=== PATIENT | male | born 1945 | race African-American/Black ===

== ENCOUNTER 2017-06-19 14:43 | Emergency (ER) | payer MEDICARE, OTHER ==
[~2017-06-19] VITALS: Ht 177.8 cm; Wt 72.6 kg
[~2017-06-19 14:43] MED LIST: ASPI81CH43 PO; ATOR20TA50 PO; CALC600T80 PO; CAR3125T PO; CLOP75TA28 PO; DONE10TA37 PO; ENA2.5T PO; FUR20T PO; HYDR-4663 PO; ISOS20TA56 PO; MEMA28CA PO; PHEN100C70 PO; RISP1TAB63 PO
[2017-06-19 16:38] VITALS: BP 128/70
== END 2017-06-19 17:05 | disposition home or self-care (01) ==
LOC: EDUNIT# 14:43 → ER 14:48
DX: G89.29 Other chronic pain (principal); M54.9 Dorsalgia, unspecified; R10.9 Unspecified abdominal pain; I25.10 Atherosclerotic heart disease of native coronary artery without angina pectoris; I11.0 Hypertensive heart disease with heart failure; I50.9 Heart failure, unspecified; E78.5 Hyperlipidemia, unspecified; F03.90 Unspecified dementia, unspecified severity, without behavioral disturbance, psychotic disturbance, mood disturbance, and anxiety; I25.2 Old myocardial infarction; Z95.1 Presence of aortocoronary bypass graft
CPT/HCPCS: 93005

== ENCOUNTER 2018-06-27 16:07 | Inpatient (IN) | payer MEDICARE, OTHER ==
[~2018-06-27] VITALS: Ht 177.8 cm; Wt 77.1 kg
[~2018-06-27 16:07] MED LIST changes: +CYAN500T2 PO; -DONE10TA37 PO; +DONE10TA40 PO; -HYDR-4663 PO; +HYDR-4683 PO; +LEVO-28 PO; -MEMA28CA PO; +TAM04C PO
[2018-06-27] MEDS ORDERED: SODIUM CHLORIDE 0.9% 1,000 ML IV ONE (17:01)
[2018-06-27] MEDS ORDERED: MORPHINE SULF INJ 2 MG/ML SYRINGE 1ML IV ONE (17:15)
[2018-06-27] MEDS ORDERED: PROMETHAZINE HCL 25 MG/ML 1ML IV ONE (17:15)
[2018-06-27 17:46] LABS: Basophils # (auto) 0 uL; Basophils % (auto) 0.6 % (0.0-2.0); Eosinophils # (auto) 0.4 uL; Eosinophils % (auto) 5.9 % (0.0-7.0); Hematocrit 44.3 % (41.0-53.0); Hemoglobin 14.8 g/dL (13.5-17.5); Lymphocytes # (auto) 1.4 uL; Lymphocytes % (auto) 21.4 % (10.0-50.0); Mean Corpuscular Hemoglobin 31.6 pg (28.0-32.0); Mean Corpuscular Hgb Conc. 33.4 g/dL (32.0-36.0); Mean Corpuscular Volume 94.7 fL (80.0-100.0); Monocytes # (auto) 0.8 uL; Monocytes % (auto) 11.5 % (0.0-12.0); Neutrophils # (auto) 3.9 uL; Neutrophils % (auto) 60.6 % (37.0-80.0); Nucleated Red Blood Cells % 2.3 %; Platelet Count (auto) 170 10^3/uL (140-450); Red Blood Cells 4.68 10^6/uL (4.5-5.90); Red Cell Distribution Width 15.4 % (11.8-14.3); White Blood Cell 6.5 10^3/uL (4.4-10.8)
[2018-06-27 17:57] LABS: INR 1.06 (0.9-1.15); Partial Thromboplastin Time 25.9 sec (23.78-33.04); Prothrombin Time 11.3 sec (9.27-12.13)
[2018-06-27 18:02] LABS: Alanine Aminotransferase 20 U/L (16-61); Albumin 3.8 g/dL (3.4-5.0); Anion Gap 8 (5-15); Aspartate Aminotransferase 21 U/L (15-37); BUN/Creatinine Ratio 13.4; Blood Urea Nitrogen 15 mg/dL (7-18); Calcium 8.5 mg/dL (8.5-10.1); Carbon Dioxide 27 mmol/L (21-32); Chloride 108 mmol/L (98-107); GFR African American 83 mL/min; GFR Non-African American 68 mL/min; Glucose 75 mg/dL (74-106); Sodium 143 mmol/L (136-145)
[2018-06-27 18:07] LABS: Alkaline Phosphatase 112 U/L (45-117); Bilirubin, Total 0.4 mg/dL (0.2-1.0); Total Protein 7.7 g/dL (6.4-8.2)
[2018-06-27] MEDS ORDERED: ACETAMINOPHEN 325 MG TAB PO PRN (21:30)
[2018-06-27] MEDS ORDERED: TEMAZEPAM 15 MG CAP PO PRN (21:30)
[2018-06-27] MEDS ORDERED: SUMAtriptan SUCCINATE 25 MG TAB PO ONE (21:30)
[2018-06-27] MEDS ORDERED: SUMAtriptan SUCCINATE 25 MG TAB PO PRN (21:30)
[2018-06-27] MEDS ORDERED: ONDANSETRON HCL 4 MG/2 ML VIAL IV PRN (21:30)
[2018-06-27] MEDS ORDERED: HYDROcodone-ACET 5/325MG TAB PO PRN (21:30)
[2018-06-27] MEDS ORDERED: ATORVASTATIN 20 MG TAB PO SCH (22:00)
[2018-06-27] MEDS ORDERED: PHENYTOIN SODIUM 100 MG CAP PO SCH (22:00)
[2018-06-27] MEDS ORDERED: DONEPEZIL HYDROCHLORIDE 5 MG TAB PO SCH (22:00)
[2018-06-27] MEDS: FAMOTIDINE 20 MG TAB PO SCH (22:29)
[2018-06-27] MEDS: risperiDONE 1 MG TAB PO SCH (22:29)
[2018-06-27] MEDS: ENALAPRIL MALEATE 2.5 MG TAB PO SCH (22:29)
[2018-06-27] MEDS: CARVEDILOL 3.125 MG TAB PO SCH (22:29)
[2018-06-27] MEDS: ISOSORBIDE MONONITRATE 20 MG TAB PO SCH (22:29)
[2018-06-27 23:11] VITALS: BP_SYST 174; BP_SYST 188; BP_DIAS 86; BP_DIAS 96
[2018-06-28 05:22] VITALS: BP 137/76
[2018-06-28 07:06] LABS: Basophils # (auto) 0 uL; Basophils % (auto) 0.8 % (0.0-2.0); Eosinophils # (auto) 0.4 uL; Hematocrit 40.6 % (41.0-53.0); Hemoglobin 13.7 g/dL (13.5-17.5); Lymphocytes # (auto) 1.4 uL; Lymphocytes % (auto) 23.1 % (10.0-50.0); Mean Corpuscular Hemoglobin 31.9 pg (28.0-32.0); Mean Corpuscular Hgb Conc. 33.8 g/dL (32.0-36.0); Mean Corpuscular Volume 94.4 fL (80.0-100.0); Monocytes # (auto) 0.7 uL; Neutrophils # (auto) 3.6 uL; Neutrophils % (auto) 59.1 % (37.0-80.0); Nucleated Red Blood Cells % 0.2 %; Platelet Count (auto) 156 10^3/uL (140-450); Red Cell Distribution Width 15.2 % (11.8-14.3); White Blood Cell 6.1 10^3/uL (4.4-10.8)
[2018-06-28 07:19] LABS: Albumin 3.2 g/dL (3.4-5.0); BUN/Creatinine Ratio 13.1; Calcium 8.1 mg/dL (8.5-10.1); Potassium 3.7 mmol/L (3.5-5.1)
[2018-06-28 07:22] LABS: Bilirubin, Total 0.6 mg/dL (0.2-1.0); Total Protein 6.4 g/dL (6.4-8.2)
[2018-06-28 08:39] VITALS: BP 176/85
[2018-06-28] MEDS: ISOSORBIDE MONONITRATE 20 MG TAB PO SCH (09:52)
[2018-06-28] MEDS: risperiDONE 1 MG TAB PO SCH (09:52)
[2018-06-28] MEDS: ENALAPRIL MALEATE 2.5 MG TAB PO SCH (09:53)
[2018-06-28] MEDS: FAMOTIDINE 20 MG TAB PO SCH (09:53)
[2018-06-28] MEDS: CARVEDILOL 3.125 MG TAB PO SCH (09:54)
[2018-06-28] MEDS ORDERED: ASPirin 81 mg TAB PO SCH (10:00)
[2018-06-28] MEDS ORDERED: FUROSEMIDE 20 MG TAB PO SCH (10:00)
[2018-06-28] MEDS ORDERED: CLOPIDOGREL BISULFATE 75 MG TAB PO SCH (10:00)
[2018-06-28] MEDS ORDERED: ENOXAPARIN SOD 40 MG/0.4 ML SYRINGE SC SCH (10:00)
[2018-06-28 13:00] VITALS: BP 121/79
[2018-06-28 16:35] VITALS: BP 121/79
[2018-06-28 16:35] LABS: Urine Bacteria FEW /hpf (None Seen); Urine Blood Negative /uL (Negative); Urine Specific Gravity 1.006 (1.001-1.035); Urine WBC 2 /hpf (0 - 3)
[2018-06-28 17:09] VITALS: BP 145/92
[2018-06-28] MEDS ORDERED: TAMSULOSIN HYDROCHLORIDE 0.4 MG CAP PO SCH (18:00)
== END 2018-06-28 20:15 | disposition home or self-care (01) | DRG 194 ==
LOC: EDBD 16:07 → ER 16:14 → OVERFLOW 16:15 → WEST WING 22:49
PROVIDERS: ADMIT Nurse Practitioner; ATTEND Internal Medicine
DX: I11.0 Hypertensive heart disease with heart failure (principal); N17.0 Acute kidney failure with tubular necrosis; R51 Headache; I50.42 Chronic combined systolic (congestive) and diastolic (congestive) heart failure; G20 Parkinson's disease; F20.9 Schizophrenia, unspecified; I69.351 Hemiplegia and hemiparesis following cerebral infarction affecting right dominant side; F02.80 Dementia in other diseases classified elsewhere, unspecified severity, without behavioral disturbance, psychotic disturbance, mood disturbance, and anxiety; N39.0 Urinary tract infection, site not specified; G40.909 Epilepsy, unspecified, not intractable, without status epilepticus; E78.5 Hyperlipidemia, unspecified; I25.10 Atherosclerotic heart disease of native coronary artery without angina pectoris; M19.90 Unspecified osteoarthritis, unspecified site; Z82.49 Family history of ischemic heart disease and other diseases of the circulatory system; Z87.442 Personal history of urinary calculi; Z87.891 Personal history of nicotine dependence; Z95.0 Presence of cardiac pacemaker; I25.2 Old myocardial infarction
CPT/HCPCS: 36415; 70450; 71045; 80053; 81001; 83735; 84484; 85025; 85610; 85652; 85730; 94761; 96361; 96374; 96375

== ENCOUNTER 2018-12-27 20:20 | Inpatient (IN) | payer MEDICARE, OTHER | END 2018-12-29 19:50 | disposition home or self-care (01) | LOC: ER 20:20 → TELE 12-28 02:32 → OVERFLOW 12-28 03:06 → CENTRAL 12-28 13:04 | DX: G93.41 Metabolic encephalopathy (principal); I50.42 Chronic combined systolic (congestive) and diastolic (congestive) heart failure; G20 Parkinson's disease; I69.351 Hemiplegia and hemiparesis following cerebral infarction affecting right dominant side; N39.0 Urinary tract infection, site not specified; G40.909 Epilepsy, unspecified, not intractable, without status epilepticus; Z95.0 Presence of cardiac pacemaker; F03.90 Unspecified dementia, unspecified severity, without behavioral disturbance, psychotic disturbance, mood disturbance, and anxiety ==

== ENCOUNTER 2019-01-17 11:35 | Inpatient (IN) | payer MEDICARE, OTHER ==
[~2019-01-17] VITALS: Ht 172.7 cm; Wt 73.5 kg
[~2019-01-17 11:35] MED LIST changes: -ASPI81CH43 PO; -ATOR20TA50 PO; -CALC600T80 PO; -CYAN500T2 PO; -DONE10TA40 PO; -ENA2.5T PO; -FUR20T PO; -HYDR-4683 PO; -ISOS20TA56 PO; -LEVO-28 PO; -PHEN100C70 PO
[2019-01-17] MEDS ORDERED: SODIUM CHLORIDE 0.9% 1,000 ML IVB ONE (12:00)
[2019-01-17 13:26] LABS: Urine WBC None Seen /hpf (0 - 3)
[2019-01-17 13:37] LABS: Basophils # (auto) 0 uL; Basophils % (auto) 0.2 % (0.0-2.0); Eosinophils # (auto) 0.3 uL; Eosinophils % (auto) 5.8 % (0.0-7.0); Hematocrit 45.3 % (41.0-53.0); Hemoglobin 15.2 g/dL (13.5-17.5); Lymphocytes # (auto) 0.6 uL; Lymphocytes % (auto) 11.6 % (10.0-50.0); Mean Corpuscular Hemoglobin 31.4 pg (28.0-32.0); Mean Corpuscular Hgb Conc. 33.6 g/dL (32.0-36.0); Mean Corpuscular Volume 93.6 fL (80.0-100.0); Monocytes # (auto) 0.6 uL; Monocytes % (auto) 11.9 % (0.0-12.0); Neutrophils # (auto) 3.4 uL; Neutrophils % (auto) 70.5 % (37.0-80.0); Nucleated Red Blood Cells % 0.1 %; Platelet Count (auto) 90 10^3/uL (140-450); Red Blood Cells 4.84 10^6/uL (4.5-5.90); Red Cell Distribution Width 15.6 % (11.8-14.3); White Blood Cell 4.8 10^3/uL (4.4-10.8)
[2019-01-17 13:49] LABS: Urine Bacteria NONE SEEN /hpf (None Seen); Urine Blood Negative /uL (Negative); Urine Specific Gravity 1.019 (1.001-1.035)
[2019-01-17 13:51] LABS: INR 1.11 (0.9-1.15); Partial Thromboplastin Time 31.6 sec (23.78-33.04); Prothrombin Time 11.8 sec (9.27-12.13)
[2019-01-17 14:08] LABS: Albumin 3.2 g/dL (3.4-5.0); BUN/Creatinine Ratio 40.6; Calcium 8.9 mg/dL (8.5-10.1); Magnesium 2.6 mg/dL (1.6-2.6); Potassium 3.9 mmol/L (3.5-5.1)
[2019-01-17 14:13] LABS: Bilirubin, Total 0.2 mg/dL (0.2-1.0); Total Protein 7.2 g/dL (6.4-8.2)
[2019-01-17] MEDS ORDERED: DEXTROSE 50% SYRINGE 50 ML IV ONE (14:57)
[2019-01-17] MEDS ORDERED: DEXTROSE (50%) 50ML SYRG IV ONE (15:00)
[2019-01-17] MEDS ORDERED: TEMAZEPAM 15 MG CAP PO PRN (15:15)
[2019-01-17] MEDS ORDERED: NITROGLYCERIN 0.4 MG SL TAB SL PRN (15:15)
[2019-01-17] MEDS ORDERED: MORPHINE SULFATE 4 MG/ML SYR/VIAL IV PRN (15:15)
[2019-01-17] MEDS ORDERED: PROMETHAZINE HCL 25 MG/ML 1ML IV PRN (15:15)
[2019-01-17] MEDS ORDERED: LORazepam 0.5 MG TAB PO PRN (15:15)
[2019-01-17] MEDS ORDERED: LACTULOSE 20Gm/30ML SOLN PO PRN (15:15)
[2019-01-17] MEDS ORDERED: MORPHINE SULF INJ 2 MG/ML SYRINGE 1ML IV PRN (15:15)
[2019-01-17] MEDS ORDERED: HYDROcodone-ACET 5/325MG TAB PO PRN (15:15)
[2019-01-17] MEDS: SODIUM CHLORIDE 0.9% 1,000 ML IV SCH (15:37)
[2019-01-17 16:08] LABS: Folate (Folic Acid) 9.31 ng/mL (5.38-24)
[2019-01-17] MEDS: TAMSULOSIN HYDROCHLORIDE 0.4 MG CAP PO SCH (18:00)
[2019-01-17 18:14] VITALS: BP 93/59
--- NOTE | 2019-01-17 18:14 | NUR ---
PT ADMITTED TO FLOOR VIA BED AND STAFF. PT APHASIC AND UNRESPONSIVE, ARMS AND LEGS CONTRACTED. 10 MLS CLEAR YELLOW URINE NOTED IN DUNCAN. SMALL PRESSURE ULCER ON RIGHT BUTTOX/HIP AREA COVERED WITH OPTIFOAM. SIDE RAILS UP X2, BED IN LOWEST LOCKED POSITION WITH BED ALARM ON. LIGHT ON, CALLED CHARGE FOR BEAR HUGGER. LO REPORTS SHE WILL BE IN SOON TO SEE THE PATIENT. VITALS: BP 93/59, HR 60, 02 100, RR 14, T 93.4 RECTALLY. BS 84.
--- NOTE | 2019-01-17 18:45 | NUR ---
HELD 1800 FLOW MAX AND DINNER TRAY HELD, NOT SURE IF PT CAN SWALLOW AND PT UNABLE TO SPEAK. DIET AND WOUND CONSULT PUT IN. WILL CONTINUE TO MONITOR.
--- NOTE | 2019-01-17 19:12 | NUR ---
RETRIEVED BEAR VANDANAGGER FROM ICU. ICU CHARGE REPORTS TO MONITOR PT TEMP Q 2 HOURS AND START PT ON MEDIUM SETTING. BEAR HUGGER IN PLACE ON MEDIUM DIRECTLY ON TOP OF PATIENT WITH BLANKETS ON TOP. SPOKE WITH KYLER, FIELD GAUGER, PATIENT LIVES WITH HER, KYLER UPDATED ON PATIENT STATUS AND ROOM NUMBER, PASSWORD WAS ALREADY IN COMPUTER FROM PT LAST ADMISSION FOR UTI 0N Dec.
--- NOTE | 2019-01-17 19:30 | NUR ---
Opening Shift Note Assumed care of patient, lethargic at this time, respirations even and unlabored at 3 Lpm/NC. Noted Yulia Hugger on the patient at moderate temperature. No S/S of distress/SOB or pain. Turned to his side and every 2 hours, bed in lowest position, bed alarm on, will closely monitor for changes Q1hr and PRN.
[2019-01-17] MEDS ORDERED: DEXTROSE (50%) 50ML SYRG IV PRN (20:30)
[2019-01-17 22:00] VITALS: BP 79/54
[2019-01-17] MEDS: risperiDONE 1 MG TAB PO SCH (22:00)
[2019-01-17] MEDS ORDERED: ATORVASTATIN 20 MG TAB PO SCH (22:00)
[2019-01-17] MEDS: CARVEDILOL 3.125 MG TAB PO SCH (22:00)
[2019-01-17 23:00] VITALS: BP 99/54
--- NOTE | 2019-01-17 23:55 | NUR ---
Blood sugar of 66 and rechecked of 63. Patient lethargic at this time, unable to assess swallowing. D50 IV given per protocol, will update hospitalist
[2019-01-18] VITALS (8 sets, daily range): BP systolic 88–114; BP diastolic 42–56
[2019-01-18] MEDS: ACCU-CHEK COMFORT CURVE STRIP VI SCH ×6 (00:01→22:17)
--- NOTE | 2019-01-18 01:11 | NUR ---
Spoke to Hospitalist Jose Roberto and updated on patient's status. Order received at this time and read back, will carry out order
[2019-01-18] MEDS ORDERED: D5W/SOD CHLO 0.9% 1,000 ML IV SCH (01:15)
[2019-01-18] MEDS: SODIUM CHLORIDE 0.9% 1,000 ML IV SCH (03:38)
--- NOTE | 2019-01-18 04:00 | NUR ---
Dressing to right hip ulcer changed, cleansed with NS and patted dry. Turned to his right side and every 2 hours, patient tolerated well, will continue to monitor
--- NOTE | 2019-01-18 04:00 | NUR ---
Turned Off Yulia Hugger at this time, patient's temperature is 99.3, removed extra blanket, will recheck temperature later
--- NOTE | 2019-01-18 05:00 | NUR ---
Had a smear of bowel movement, sponge bath done, pads changed, turned to his side, patient tolerated well Addendum: 01/19/19 at 0640 by Carmel Crandall RN RN Correction of date: 01/19/19 at 0136
[2019-01-18 06:35] LABS: Basophils # (auto) 0 uL; Basophils % (auto) 0.2 % (0.0-2.0); Eosinophils # (auto) 0.2 uL; Eosinophils % (auto) 2.5 % (0.0-7.0); Hemoglobin 13.5 g/dL (13.5-17.5); Lymphocytes # (auto) 0.4 uL; Lymphocytes % (auto) 5.5 % (10.0-50.0); Mean Corpuscular Hemoglobin 31.8 pg (28.0-32.0); Mean Corpuscular Hgb Conc. 33.9 g/dL (32.0-36.0); Mean Corpuscular Volume 93.7 fL (80.0-100.0); Monocytes # (auto) 1.2 uL; Monocytes % (auto) 15.6 % (0.0-12.0); Neutrophils % (auto) 76.2 % (37.0-80.0); Nucleated Red Blood Cells % 0.1 %; Platelet Count (auto) 92 10^3/uL (140-450); Red Blood Cells 4.26 10^6/uL (4.5-5.90); Red Cell Distribution Width 15.9 % (11.8-14.3); White Blood Cell 7.8 10^3/uL (4.4-10.8)
[2019-01-18 06:52] LABS: Calcium 8.4 mg/dL (8.5-10.1); Potassium 4.6 mmol/L (3.5-5.1)
[2019-01-18 07:06] LABS: BUN/Creatinine Ratio 22.8; Bilirubin, Total 0.2 mg/dL (0.2-1.0)
[2019-01-18 07:08] LABS: Total Protein 6.3 g/dL (6.4-8.2)
--- NOTE | 2019-01-18 07:30 | NUR ---
Opening Shift Note Assumed care of patient, opens eyes with saying name and shaking. Does not respond or move limbs. No S/S of distress/SOB or pain. Will continue to monitor for changes Q1hr and PRN.
[2019-01-18] MEDS: CLOPIDOGREL BISULFATE 75 MG TAB PO SCH (10:00)
[2019-01-18] MEDS: CARVEDILOL 3.125 MG TAB PO SCH ×2 (10:00→22:00)
[2019-01-18] MEDS: risperiDONE 1 MG TAB PO SCH ×2 (10:00→22:16)
[2019-01-18] MEDS ORDERED: PANTOPRAZOLE 40 MG TAB PO SCH (10:00)
[2019-01-18] MEDS ORDERED: ENOXAPARIN SOD 40 MG/0.4 ML SYRINGE SC SCH (10:00)
[2019-01-18] MEDS ORDERED: D5W 5% 1,000 ML IV ONE (11:00)
[2019-01-18] MEDS ORDERED: DEXTROSE (50%) 50ML SYRG IV PRN (11:00)
[2019-01-18] MEDS: InsuLIN REG 1unit/0.01ml Soln (100units/ml) SC SCH ×3 (11:30→22:00)
[2019-01-18] MEDS ORDERED: FREE WATER PO SCH (12:00)
--- NOTE | 2019-01-18 12:46 | NUR ---
Nasogastric tube insertion Patient opens eyes to tactile stimuli. No verbal response or limb movement. Cannot swallow. NGT inserted per MD order. Placement verified by aspiration of stomach contents, auscultation and chest xray.
[2019-01-18] MEDS ORDERED: PANTOPRAZOLE 40 MG/10 ML VIAL IV ONE (13:00)
--- NOTE | 2019-01-18 13:58 | NUR ---
WOUND CARE NOTE: Wound care in to see patient per wound care request regarding "pressure area on pt. right hip/buttock" that are noted present on admission. Bedside nurse took photograph of patient's wound upon admission for reference. Patient is 73 years old male with admitting diagnosis of ALOC, CVA, Non-STEMI. Patient is resting in bed in Rm. 222A. He's awake and aphasic. Patient appears to be in no pain using Crooks Jovel Faces Pain Scale. He needs assistance in turning and repositioning. His Remberto score is 13. Skin assessment done with the assistance of patient's nurse, KESHAWN Vieyra. Noted 3x3.5 cm open partial thickness pressure injury to patient's R hip consistent with Stage 2 pressure injury. Wound is red with dark red mehnaz wound, no drainage/odor noted. Cleansed R hip wound with wound cleanser, patted dry with sterile gauze, applied Thera honey gel and covered with Opti foam gentle dressing. Repositioned patient for comfort, redistributed pressure points with pillows. Patient tolerated well. Bed inlow position with all safety precautions in placed. RECOMMENDATION: Daily/PRN dressing change to Rt. hip pressure injury , BID/PRN cleaning and application of Barrier cream to sacral/buttocks per MD order, frequent turning and repositioning schedule as condition permits, redistribute pressure points with pillows, elevate heels on pillows, continue monitoring by wound care while patient is hospitalized. Addendum: 01/18/19 at 1753 by Kristen Tijerina RN Amended: Links added.
[2019-01-18] MEDS ORDERED: CLOPIDOGREL BISULFATE 75 MG TAB PO ONE (16:00)
--- NOTE | 2019-01-18 17:32 | NUR ---
DR. PABON MADE AWARE OF PATIENT'S DECREASED BLOOD PRESSURE. NORMAL SALINE BOLUS ORDER OBTAINED. I INFORMED HIM THAT THE PATIENT CURRENTLY HAS A HIGH SODIUM LEVEL. ORDER FOR BOLUS STILL STANDS.
[2019-01-18] MEDS ORDERED: SODIUM CHLORIDE 0.9% 500 ML IV ONE (17:45)
[2019-01-18] MEDS: TAMSULOSIN HYDROCHLORIDE 0.4 MG CAP PO SCH (18:00)
[2019-01-18] MEDS: FREE WATER NG SCH (18:16)
[2019-01-18] MEDS ORDERED: HALOPERIDOL LACTATE 5 MG/ML INJ VIAL IM PRN (18:45)
[2019-01-18] MEDS ORDERED: LORazepam 2MG/ML-1ML VIAL IV PRN (18:45)
--- NOTE | 2019-01-18 19:35 | NUR ---
Opening Shift Note Assumed care of patient, opens eyes with saying name and shaking. Respirations even and unlabored, no signs of distress. Noted NGT on right nares, chowdhury patent and draining to light elsa urine output. Bed in lowest position, bed alarm on, turned to his side and every 2 hours, will continue to monitor for changes Q1hr and PRN.
--- NOTE | 2019-01-18 20:10 | NUR ---
Patient was brought down for Head CT
[2019-01-18 20:31] LABS: CRP High Sensitivity 4.1 mg/dL (< 0.3)
[2019-01-18] MEDS: ATORVASTATIN 20 MG TAB PO SCH (22:16)
[2019-01-18] MEDS: PHENYTOIN SODIUM 50 MG/ML 2ML VIAL IV SCH (22:17)
[2019-01-19] MEDS: FREE WATER NG SCH ×5 (00:01→23:23)
[2019-01-19 04:39] VITALS: BP 102/50
--- NOTE | 2019-01-19 05:10 | NUR ---
Dressing to right hip moderately soaked, changed as ordered, patient tolerated well
--- NOTE | 2019-01-19 06:05 | NUR ---
Patient had a moist cough, suctioned oral secretions, will continue to monitor
[2019-01-19] MEDS: PHENYTOIN SODIUM 50 MG/ML 2ML VIAL IV SCH ×3 (06:17→22:51)
[2019-01-19] MEDS: ACCU-CHEK COMFORT CURVE STRIP VI SCH ×4 (06:18→22:50)
[2019-01-19] MEDS: InsuLIN REG 1unit/0.01ml Soln (100units/ml) SC SCH ×4 (06:18→22:00)
[2019-01-19 06:31] LABS: Potassium 4.7 mmol/L (3.5-5.1)
[2019-01-19 06:40] LABS: BUN/Creatinine Ratio 27.5; Calcium 8.6 mg/dL (8.5-10.1)
--- NOTE | 2019-01-19 07:20 | NUR ---
Opening Shift Note Assumed care of patient, patient lethargic. Patient opens eyes to name and shaking. No S/S of distress/SOB or pain. NG tub in place. Safety precautions in place.
[2019-01-19 08:00] VITALS: BP 120/55
[2019-01-19] MEDS: CARVEDILOL 3.125 MG TAB PO SCH ×2 (08:42→22:49)
[2019-01-19 09:01] VITALS: BP 120/53
[2019-01-19] MEDS: CLOPIDOGREL BISULFATE 75 MG TAB PO SCH (10:29)
[2019-01-19] MEDS: ENOXAPARIN SOD 30 MG/0.3 ML SYRINGE SC SCH (10:29)
[2019-01-19] MEDS: risperiDONE 1 MG TAB PO SCH ×2 (10:29→22:49)
[2019-01-19] MEDS: PANTOPRAZOLE 40 MG/10 ML VIAL IV SCH (10:29)
--- NOTE | 2019-01-19 12:25 | NUR ---
EEG COMPLETED AT BEDSIDE. KESHAWN LOVELL.
[2019-01-19 12:30] VITALS: BP 114/58
--- NOTE | 2019-01-19 12:52 | NUR ---
Temp 96 axillary Bear Hugger placed back on patient.
[2019-01-19 16:59] VITALS: BP 117/52
[2019-01-19] MEDS: TAMSULOSIN HYDROCHLORIDE 0.4 MG CAP PO SCH (17:28)
--- NOTE | 2019-01-19 19:20 | NUR ---
Opening Shift Note Assumed care of patient, awake and alert. No S/S of distress/SOB or pain. Bear hugger is in place due to low body temperature. Ng tube feeding with jevity running at 35 mls/hr. Instructed on POC and to call for assist PRN, will continue to monitor for changes Q1hr and PRN.
[2019-01-19] MEDS: Jevity 1.2 Cal/Fiber 1 Liter GT SCH (20:04)
[2019-01-19 22:00] VITALS: BP 119/58
--- NOTE | 2019-01-19 22:40 | NUR ---
Patient's blood glucose is 69. Patient is unable to swallow. Dextrose 50mL given.
[2019-01-19] MEDS: ATORVASTATIN 20 MG TAB PO SCH (22:49)
--- NOTE | 2019-01-20 | NUR ---
Checked residual prior to 100mls free water. No residual aspirated.
[2019-01-20 05:00] VITALS: BP 103/56
--- NOTE | 2019-01-20 06:00 | NUR ---
Checked residual prior to 100mls free water. No residual aspirated.
[2019-01-20] MEDS: FREE WATER NG SCH ×4 (06:32→22:22)
[2019-01-20] MEDS: PHENYTOIN SODIUM 50 MG/ML 2ML VIAL IV SCH ×3 (06:32→22:21)
[2019-01-20] MEDS: ACCU-CHEK COMFORT CURVE STRIP VI SCH ×4 (06:33→22:22)
[2019-01-20] MEDS: InsuLIN REG 1unit/0.01ml Soln (100units/ml) SC SCH ×4 (06:35→22:00)
[2019-01-20 06:50] LABS: BUN/Creatinine Ratio 32.7; Calcium 8.9 mg/dL (8.5-10.1); Potassium 4.4 mmol/L (3.5-5.1)
[2019-01-20 09:47] VITALS: BP 113/53
[2019-01-20] MEDS: CARVEDILOL 3.125 MG TAB PO SCH ×2 (10:00→22:21)
--- NOTE | 2019-01-20 10:00 | NUR ---
Had a soft small bowel movement, washed and cleaned, pads changed, turned to his side, patient tolerated well.
[2019-01-20] MEDS: CLOPIDOGREL BISULFATE 75 MG TAB PO SCH (10:42)
[2019-01-20] MEDS: risperiDONE 1 MG TAB PO SCH ×2 (10:42→22:21)
[2019-01-20] MEDS: ENOXAPARIN SOD 30 MG/0.3 ML SYRINGE SC SCH (10:44)
[2019-01-20] MEDS: PANTOPRAZOLE 40 MG/10 ML VIAL IV SCH (11:31)
[2019-01-20 12:30] VITALS: BP 116/64
--- NOTE | 2019-01-20 14:00 | NUR ---
Placement verified by aspiration of stomach contents and auscultation prior to administering 100 ml free water. No residual aspirated
[2019-01-20 17:01] VITALS: BP 117/82
[2019-01-20] MEDS: TAMSULOSIN HYDROCHLORIDE 0.4 MG CAP PO SCH (18:00)
--- NOTE | 2019-01-20 19:30 | NUR ---
Opening Shift Note Assumed care of patient, awake and alert to self. NG tube is in the right nare running jevity at 35mls/hr. Seizure precautions are at bedside. Bed is in lowest position, side rails up x2. Bear hugger is applied to patient for decreased body temperature. No S/S of distress/SOB or pain. Instructed on POC and to call for assist PRN, will continue to monitor for changes Q1hr and PRN.
[2019-01-20 22:00] VITALS: BP 111/49
--- NOTE | 2019-01-20 22:13 | NUR ---
Auscultated placement of NG tube and checked residual prior to giving patient medications and 100 mls of free water. Placement verified and no residual pulled back. Patient tolerated well.
[2019-01-20] MEDS: ATORVASTATIN 20 MG TAB PO SCH (22:21)
[2019-01-21] MEDS: FREE WATER NG SCH ×6 (02:09→22:00)
[2019-01-21] MEDS: Jevity 1.2 Cal/Fiber 1 Liter GT SCH (02:09)
--- NOTE | 2019-01-21 02:10 | NUR ---
Auscultated placement of NG tube and checked residual prior to giving patient medications and 100 mls of free water. Placement verified and no residual pulled back. New Jevity tube feeding hung and set at 35 mls/hr. Patient tolerated well.
[2019-01-21 05:00] VITALS: BP 121/60
[2019-01-21] MEDS: PHENYTOIN SODIUM 50 MG/ML 2ML VIAL IV SCH ×3 (05:53→22:31)
[2019-01-21] MEDS: InsuLIN REG 1unit/0.01ml Soln (100units/ml) SC SCH ×4 (05:53→22:00)
[2019-01-21] MEDS: ACCU-CHEK COMFORT CURVE STRIP VI SCH ×4 (05:54→22:32)
--- NOTE | 2019-01-21 08:00 | NUR ---
RECEIVED PATIENT ALERT AND ORIENTED X1, NONE VERBAL OPEN EYED TO TOUCH AND NAME, NOT IN DISTRESS, NO S/S OF PAIN, DIMINISHED LS IN BILATERAL LUNG LOBES, RR=18 SAT=98% WITH O2 3L NC, NO S/S OF SOB OR CP, PACED RHYTHM R=84 ON TELE MONITOR, ABDOMEN SOFT WITH ACTIVE BS, RT. KIMMIE NGT IN PLACE FEEDING WITH JEVITY, TOLERATED WELL, NO RESIDUAL NOTED, LAST BM=01/17/19 REPORTED, DUNCAN CATH IN PLACE PATENT AND DRAINING CLEAR YELLOW URINE, BILATERAL EXTRADITES CONTRACTED NOTED, RT. AND SRAVANI WOUND COVERED WITH DRY AND INTACT DRESSING, RADIAL AND PEDAL PULSES PALPABLE, RESTING ON BED, HEAD OF BED ELEVATED, BED ON LOW POSITION, RAILS UP X2, CALL LIGHTS ON REACH, WILL CONTINUE MONITORING.
[2019-01-21 09:00] VITALS: BP 123/44
[2019-01-21] MEDS ORDERED: ASPirin 81 mg TAB NG SCH (10:00)
--- NOTE | 2019-01-21 10:00 | NUR ---
NOT IN DISTRESS, COUGHING WHITE THICK MUCUS, KEEP SUCTIONING NEEDED, TOLERATED WELL, ON SEIZURE PRECAUTION, NO SEIZURE ACTIVITY NOTED, POSITION CHANGE Q 2HRS, TOLERATING WELL NGT FEEDING NO RESIDUAL NOTED, FLASHED 100 CC ORDERED, WILL CONTINUE MONITORING.
[2019-01-21] MEDS: PANTOPRAZOLE 40 MG/10 ML VIAL IV SCH (10:47)
[2019-01-21] MEDS: CARVEDILOL 3.125 MG TAB PO SCH ×2 (10:48→22:00)
[2019-01-21] MEDS: CLOPIDOGREL BISULFATE 75 MG TAB PO SCH (10:49)
[2019-01-21] MEDS: risperiDONE 1 MG TAB PO SCH (10:49)
[2019-01-21] MEDS: ASPirin-EC 81 mg tab PO SCH (10:49)
[2019-01-21] MEDS: ENOXAPARIN SOD 30 MG/0.3 ML SYRINGE SC SCH (10:50)
--- NOTE | 2019-01-21 12:07 | NUR ---
Nutrition Assessment Notes please see attached link for complete assessment Est. Needs BW [id number] kcal (25-30 kcal/kgBW), 57-72 gms pro (0.8-1.0 gms/kgBW d/t elev RFT). Will continue to monitor pertinent labs and reassess nutrient need prn Rec: EN support with Jevity 1.2 @ 70 ml/hr goal rate per MD approval Addendum: 01/21/19 at [address] Amended: Links added.
[2019-01-21] MEDS ORDERED: HALOPERIDOL 1 MG TAB NG PRN (12:30)
[2019-01-21] MEDS ORDERED: MORPHINE SULFATE 4 MG/ML SYR/VIAL IV PRN (12:30)
[2019-01-21] MEDS ORDERED: HYDROcodone-ACET 5/325MG TAB PO PRN (12:30)
[2019-01-21] MEDS ORDERED: MORPHINE SULF INJ 2 MG/ML SYRINGE 1ML IV PRN (12:45)
[2019-01-21 12:49] VITALS: BP 127/59
--- NOTE | 2019-01-21 14:00 | NUR ---
CALLED [phone] FOR PACE MAKER INTERROGATION FOLLOW UP, LOCAL COMMUNICATIONS DIRECTOR WILL BE NOTIFIED FOR THE PROCESS REPORTED.
[2019-01-21 17:00] VITALS: BP 121/53
[2019-01-21] MEDS: TAMSULOSIN HYDROCHLORIDE 0.4 MG CAP PO SCH (18:05)
--- NOTE | 2019-01-21 19:19 | NUR ---
NOT IN DISTRESS, NO S/S OF PAIN, REPORT WAS GIVEN TO THE RESEARCH NUTRITIONIST RN.
--- NOTE | 2019-01-21 20:00 | NUR ---
OPENING NOTE PATIENT IS A&OX1. DOES NOT COMMUNICATE. NO S/S OF DISTRESS, PAIN OR SOB. VITALS: TEMP 99.0; P 66; RR 17; O2 96 ON 3L NC. WILL CONTINUE TO MONITOR.
[2019-01-21 21:00] VITALS: BP 122/57
[2019-01-21] MEDS: ATORVASTATIN 20 MG TAB PO SCH ×2 (22:31→22:35)
[2019-01-22] MEDS: FREE WATER NG SCH ×6 (02:00→22:00)
[2019-01-22 05:07] VITALS: BP 131/55
[2019-01-22] MEDS: PHENYTOIN SODIUM 50 MG/ML 2ML VIAL IV SCH ×3 (06:33→23:40)
[2019-01-22] MEDS: ACCU-CHEK COMFORT CURVE STRIP VI SCH ×4 (06:34→22:23)
[2019-01-22] MEDS: InsuLIN REG 1unit/0.01ml Soln (100units/ml) SC SCH ×4 (06:50→22:00)
--- NOTE | 2019-01-22 07:38 | NUR ---
RECEIVED PATIENT ALERT AND ORIENTED X1, NONE VERBAL OPEN EYED TO TOUCH AND NAME, NOT IN DISTRESS, NO S/S OF PAIN, DIMINISHED LS IN BILATERAL LUNG LOBES, RR=18 SAT=96% WITH O2 3L NC, NO S/S OF SOB OR CP, PACED RHYTHM R=70'S ON TELE MONITOR, ABDOMEN SOFT WITH ACTIVE BS, RT. NEAR NGT IN PLACE FEEDING WITH JEVITY, TOLERATED WELL, NO RESIDUAL NOTED, LAST BM=THIS MORNING REPORTED, DUNCAN CATH IN PLACE PATENT AND DRAINING CLEAR YELLOW URINE, BILATERAL EXTRADITES CONTRACTED NOTED, RT. AND SRAVANI WOUND COVERED WITH DRY AND INTACT OPTI FOAM DRESSING, RADIAL AND PEDAL PULSES PALPABLE, RESTING ON BED, HEAD OF BED ELEVATED, BED ON LOW POSITION, RAILS UP X2, CALL LIGHTS ON REACH, WILL CONTINUE MONITORING.
--- NOTE | 2019-01-22 07:45 | NUR ---
Closing note Endorsed care to day shift RN. patient shows no s/s of distress.
[2019-01-22 08:42] VITALS: BP 120/60
[2019-01-22] MEDS: PANTOPRAZOLE 40 MG/10 ML VIAL IV SCH (10:09)
[2019-01-22] MEDS: CARVEDILOL 3.125 MG TAB PO SCH ×2 (10:10→23:31)
[2019-01-22] MEDS: ASPirin-EC 81 mg tab PO SCH (10:10)
[2019-01-22] MEDS: ENOXAPARIN SOD 30 MG/0.3 ML SYRINGE SC SCH (10:11)
[2019-01-22] MEDS: CLOPIDOGREL BISULFATE 75 MG TAB PO SCH (10:11)
[2019-01-22 10:14] LABS: BUN/Creatinine Ratio 29.3; Calcium 9.3 mg/dL (8.5-10.1)
--- NOTE | 2019-01-22 12:31 | NUR ---
CALLED [phone] FOR PACE MAKER INTERROGATION FOLLOW UP, COMMUNICATED WITH NATIONAL SERVICES PERSONNEL SMITH Singh, LOCAL BOMB SQUAD COMMANDER WILL BE NOTIFIED FOR THE PROCESS REPORTED.
--- NOTE | 2019-01-22 12:42 | NUR ---
SKIPE CROWN ASSEMBLY MACHINE OPERATOR CALLED BACK PATIENT'S PACE MAKER NOT FROM [employer] REPORTED, CANDICE CERTIFIED MEETING PROFESSIONAL WAS CALLED ON [phone] FOR FOLLOW UP, DR[facility] WAS WAS RENEWING PATIENTS PACE MAKER BATTERY REPORTED BY CANDICE, DR[facility] WAS CALLED ON [phone] FOR FOLLOW UP, OFFICE WAS CLOSED, LEFT A MASSAGE, WAITING FOR CALL BACK.
[2019-01-22] MEDS ORDERED: D5W 5% 1,000 ML IV ONE (12:45)
[2019-01-22 13:00] VITALS: BP 120/65
--- NOTE | 2019-01-22 13:08 | NUR ---
DR. YORK WAS PAGED FOR FOLLOW UP AND UPDATES, WAITING FOR CALL BACK.
--- NOTE | 2019-01-22 13:16 | NUR ---
DR. YORK CALLED BACK, FOLLOW UP UPDATES WERE GIVEN, INFORMATION OF PCP TO CALL JHONY PEREZ FOR DR. AYOUB ON [phone] REQUESTED, VERBALIZED UNDERSTANDING, REMINDER INFORMATION IS ON CHART REQUESTED BY DR. YORK, WILL CONTINUE MONITORING.
[2019-01-22 17:00] VITALS: BP 136/58
[2019-01-22] MEDS: TAMSULOSIN HYDROCHLORIDE 0.4 MG CAP PO SCH (17:38)
--- NOTE | 2019-01-22 19:20 | NUR ---
TOLERATING NGT FEEDING WELL, NO RESIDUAL NOTED, NOT IN DISTRESS, RESTING ON BED, REPORT WAS GIVEN TO THE EXEC. CREATIVE DIRECTOR RN.
[2019-01-22 22:00] VITALS: BP 124/62
[2019-01-22] MEDS: ATORVASTATIN 20 MG TAB PO SCH (23:10)
[2019-01-23] VITALS (7 sets, daily range): BP systolic 131–145; BP diastolic 48–82
--- NOTE | 2019-01-23 00:33 | NUR ---
Rosa Zavala, patient's pt sitter called, updated with patient's status after verification of password. All questions and concerns addressed. Care continued.
[2019-01-23] MEDS: FREE WATER NG SCH ×5 (02:00→18:02)
[2019-01-23 05:47] LABS: Potassium 3.8 mmol/L (3.5-5.1)
[2019-01-23 06:00] LABS: BUN/Creatinine Ratio 29.4; Calcium 8.7 mg/dL (8.5-10.1); Phosphorus 3.4 mg/dL (2.5-4.90)
[2019-01-23] MEDS: PHENYTOIN SODIUM 50 MG/ML 2ML VIAL IV SCH ×3 (06:21→22:37)
--- NOTE | 2019-01-23 06:45 | NUR ---
No residual from NGT. Able to tolerate only about 100cc free water. No significant changers in patient's condition. Report given to oncoming RN.
[2019-01-23] MEDS: ACCU-CHEK COMFORT CURVE STRIP VI SCH ×4 (06:50→22:00)
[2019-01-23] MEDS: InsuLIN REG 1unit/0.01ml Soln (100units/ml) SC SCH ×4 (06:50→22:44)
[2019-01-23] MEDS: Jevity 1.2 Cal/Fiber 1 Liter GT SCH (06:50)
[2019-01-23] MEDS: ASPirin-EC 81 mg tab PO SCH (11:29)
[2019-01-23] MEDS: PANTOPRAZOLE 40 MG/10 ML VIAL IV SCH (11:29)
[2019-01-23] MEDS: CLOPIDOGREL BISULFATE 75 MG TAB PO SCH (11:29)
[2019-01-23] MEDS: ENOXAPARIN SOD 30 MG/0.3 ML SYRINGE SC SCH (11:30)
[2019-01-23] MEDS: CARVEDILOL 3.125 MG TAB PO SCH ×2 (11:30→22:30)
--- NOTE | 2019-01-23 14:30 | NUR ---
RECEIVED A CALL FROM ANA TABOR WHO WORKS WITH DR SANTI AYOUB. PER JHONY DIEHL PACEMAKER LAST CHECKED WITH DR MARIN IN 2013 HE HAS A DUAL CHAMBER PACEMAKER EITHER [employer] BRAND OR [employer] BRAND. I WILL RELAY MESSAGE TO DR YORK.
--- NOTE | 2019-01-23 14:47 | NUR ---
DR YORK AWARE OF CALL RECEIVED FROM JHONY TABOR
--- NOTE | 2019-01-23 15:27 | NUR ---
RECEIVED NUMBER TO [employer] PACEMAKER REP:[id number] [phone] WILL CALL FOR PACEMAKER INTERROGATION
--- NOTE | 2019-01-23 15:35 | NUR ---
CALLED AND SPOKE TO ALEX LENNON FOR [employer] PATIENT NAME AND LAST 4 OF SOCIAL GIVEN SO REP CAN LOCATE WHAT DEVICE HE HAS BEFORE REP COMES TO INTERROGATE. IF IT IS NOT [employer] ALEX WILL CONTACT ME TO LET ME KNOW.
--- NOTE | 2019-01-23 16:21 | NUR ---
RECEIVED A CALL FROM [facility] STATING THEY CANNOT FIND PATIENT IN DATA BASE FOR [facility] HE SAID TO CALL ANOTHER PLACE SUCH [facility] [phone] DR YORK NOTIFIED.
--- NOTE | 2019-01-23 16:25 | NUR ---
PER DR YORK SHE WOULD LIKE A CARDIOLOGY CONSULT FOR DR MARIN FOR PACE MAKER/ PACE MAKER INFORMATION SINCE DR MARIN WAS THE LAST TO SEE IN 2014 PER ANA BOOKER FROM DR SANTI AYOUB OFFICE.
[2019-01-23] MEDS: TAMSULOSIN HYDROCHLORIDE 0.4 MG CAP PO SCH (18:15)
--- NOTE | 2019-01-23 18:33 | NUR ---
I WA ABLE TO GIVE 225 ML OF FREE WATER PATIENT ABLE TO TOLERATE WELL.
--- NOTE | 2019-01-23 19:15 | NUR ---
OPENING NOTE RECEIVED REPORT FROM AMELIA GOMES RN. PATIENT IS A&OX1. APHASIC, IS NOT ABLE TO COMMUNICATE NEEDS, NO S/S OF DISTRESS, PAIN OR SOB. ASSISTED PATIENT TO REPOSITION TO LEFT SIDE. BED PLACED IN LOWEST POSITION, BED ALARM TURNED ON AND CALL LIGHT WITHIN REACH.
[2019-01-23] MEDS: ATORVASTATIN 20 MG TAB PO SCH (22:29)
[2019-01-24] VITALS (7 sets, daily range): BP systolic 118–140; BP diastolic 35–80
--- NOTE | 2019-01-24 | NUR ---
PATIENT HAS A BOWEL MOVEMENT, PARTIAL BED BATH DONE. NO DISTRESS NOTED. PATIENT TOLERATED WELL.
[2019-01-24] MEDS: PHENYTOIN SODIUM 50 MG/ML 2ML VIAL IV SCH ×3 (05:53→21:47)
[2019-01-24] MEDS: InsuLIN REG 1unit/0.01ml Soln (100units/ml) SC SCH ×4 (06:50→21:48)
[2019-01-24] MEDS: ACCU-CHEK COMFORT CURVE STRIP VI SCH ×4 (06:50→21:48)
[2019-01-24 06:57] LABS: BUN/Creatinine Ratio 24.8; Calcium 8.4 mg/dL (8.5-10.1); Potassium 4.3 mmol/L (3.5-5.1)
--- NOTE | 2019-01-24 06:59 | NUR ---
PATIENT IS RESTING IN BED, ALERT AND AWAKE. CONTINUE ON JEVITY 1.2 AT 30ML/HOUR. NG TUBE FLUSHES WITH 200ML WATER EVERY 4 HOURS. PATIENT TOLERATED FLUID. RESTING IN BED, NO DISTRESS NOTED. BLOOD SUGAR IS 150.
--- NOTE | 2019-01-24 07:15 | NUR ---
Opening Shift Note Received report from Vida LIAO. Assumed care of patient, asleep. No S/S of distress/SOB or pain. Noted NGT attached to left nares intact & patent with Jevity 1.2 running at 30mls/hr. Placed bed alarm on, kept 2 side rails up, will continue to monitor for changes Q1hr and PRN.
[2019-01-24] MEDS ORDERED: FREE WATER GT SCH (10:00)
[2019-01-24] MEDS: ENOXAPARIN SOD 30 MG/0.3 ML SYRINGE SC SCH ×2 (10:00→10:10)
[2019-01-24] MEDS: ACETAMINOPHEN 500 MG TAB PO PRN (10:09)
[2019-01-24] MEDS: PANTOPRAZOLE 40 MG/10 ML VIAL IV SCH (10:09)
--- NOTE | 2019-01-24 10:10 | NUR ---
Dr. Aguila at bedside. Noted bright red blood coming out of patient's sacrum and genital area. Urine in chowdhury bag still clear yellow. Received verbal order to hold lovenox for now.
[2019-01-24] MEDS: ASPirin-EC 81 mg tab PO SCH (10:12)
[2019-01-24] MEDS: CARVEDILOL 3.125 MG TAB PO SCH ×2 (10:12→21:48)
--- NOTE | 2019-01-24 10:45 | NUR ---
IV removal NOted IV infiltrated.IV DC'd with clean sterile technique, catheter fully intact. Pressure dressing applied to site. Patient tolerated well.
--- NOTE | 2019-01-24 11:20 | NUR ---
IV insertion New IV access obtained, via clean sterile technique by inserting gauge catheter 22 at right upper arm near armpit after 4 attempts--3 from primary nurse and 1 from Cn Hans. IV secured properly. No trauma to site. Patient tolerated well.
[2019-01-24] MEDS ORDERED: MORPHINE SULF INJ 2 MG/ML SYRINGE 1ML IV PRN (13:15)
[2019-01-24] MEDS ORDERED: HYDROcodone-ACET 5/325MG TAB PO PRN (13:15)
[2019-01-24] MEDS ORDERED: MORPHINE SULFATE 4 MG/ML SYR/VIAL IV PRN (13:15)
[2019-01-24] MEDS: FREE WATER GT SCH ×3 (13:26→21:46)
--- NOTE | 2019-01-24 13:37 | NUR ---
Nutrition Follow-up Notes Wt.: 72.6 kg as of yesterday. Pt's on oxygen via nasal cannula, asleep, no immediate family member at bedside when rounded this morning. Pt's no signs of distress noted earlier, currently on 2 gms Na diet, however no record of food intake yet until this time and will be NPO, per nursing. Pt's on EN support of Jevity 1.2 Zeke @ 30 ml/hr providing 864 kcal, 40 gms proteins and 581 ml free water, tolerates feeding no residuals noted this morning, per nursing. Followed up RD's recommendation, per MD's approval. Noted pt's active Cardiology consult and for possible PEG tube placement. Est. Needs BW [id number] kcal (25-30 kcal/kgBW), 57-72 gms pro (0.8-1.0 gms/kgBW d/t elev RFT). Will continue to monitor pertinent labs and reassess nutrient need prn Labs: Gluc 155 H, Na 149 H, Cl 17 H, BUN 40 H, Cr 1.61 H, Ca 8.4 L; Alb 3.0 L Skin: Remberto scale 12, high risk, pt's right hip pressure ulcers per shop technician. Pls refer to grid molder's notes 01/18/19 for further details re: tx plans. GI: Pt had 1 BM yesterday per shop technician. PES: Increased nutrient needs r/t current/chronic medical condition aeb Dementia, ALOC, wound healing, mod hypoalbuminemia, on EN support. Altered nutrition related lab values r/t current/chronic medical condition aeb elev RFT mild hypoalb, hyperglycemia Will continue to monitor PO intake/NPO status, skin status, pertinent labs and weight trend. F/u in 2 to 3 days. Rec.: 1.) If pt's NPO with EN support, consider gradual increase on feeding rate with Jevity 1.2 Zeke to 70 ml/hr goal rate as tolerated when medically appropriate. 2.) Consider daily MVI with minerals and Asc acid 500 mgs BID. 3.) If Albumin level continues trending down, consider Prostat 1 pkt BID. 4.) Resume oral diet (per ST's diet texture recommendation) when medically appropriate. 5.) Refer pt's family to CDE/RD for further nutrition education and weight monitoring upon discharge. 6.) Continue current plan of care.
--- NOTE | 2019-01-24 13:58 | NUR ---
LETTY FROM [employer] CHECKED PATIENT'S PACEMAKER AND IT IS [employer]. SHE CALLED THE REP ALREADY FROM THE [facility], SAID THE REP WILL COME TONIGHT. IF DOESN'T COME, CALLED THEIR # AT [phone].
[2019-01-24 14:15] LABS: Hematocrit 39.8 % (41.0-53.0); Mean Corpuscular Hemoglobin 30.9 pg (28.0-32.0); Mean Corpuscular Hgb Conc. 32.7 g/dL (32.0-36.0); Mean Corpuscular Volume 94.7 fL (80.0-100.0); Platelet Count (auto) 127 10^3/uL (140-450); Red Cell Distribution Width 16.1 % (11.8-14.3); White Blood Cell 24.7 10^3/uL (4.4-10.8)
[2019-01-24 14:21] LABS: Basophils % (manual) 0 (0.0-2.0); Blast Cells 0; Metamyelocytes % 0; Myelocytes % 0; Promyelocytes % 0; Reactive Lymphocytes 0
[2019-01-24 14:52] LABS: Band Neutrophils % (manual) 1; Eosinophils % (manual) 2 (0-7); Lymphocytes % (manual) 10 (10.0-50.0); Monocytes % (manual) 19 (0-12)
[2019-01-24] MEDS ORDERED: TEMAZEPAM 15 MG CAP PO PRN (15:15)
--- NOTE | 2019-01-24 15:40 | NUR ---
URINE SAMPLE OBTAINED FOR UA AND CULTURE, SENT TO LAB.
[2019-01-24] MEDS: DOXYCYCLINE 100MG/250ML 250 ML IV SCH (15:49)
[2019-01-24 16:16] LABS: Urine Bacteria NONE SEEN /hpf (None Seen); Urine Blood 2+ /uL (Negative); Urine Mucus FEW (None Seen); Urine Specific Gravity 1.023 (1.001-1.035); Urine WBC 9 /hpf (0 - 3)
[2019-01-24 16:57] LABS: Protein, Urine 65.1 mg/dL (0.0-11.9)
[2019-01-24] MEDS: TAMSULOSIN HYDROCHLORIDE 0.4 MG CAP PO SCH (17:52)
[2019-01-24] MEDS: PIPERACILLIN-TAZOB 3.375GM 100 ML IV SCH (17:52)
--- NOTE | 2019-01-24 19:30 | NUR ---
Opening Shift Note Received report from loyd Green RN. Assumed care of patient, asleep. No S/S of distress/SOB or pain. Noted NGT attached to left nares intact & patent with Jevity 1.2 running at 30mls/hr. Placed bed alarm on, kept 2 side rails up, will continue to monitor for changes Q1hr and PRN.
--- NOTE | 2019-01-24 23:30 | NUR ---
PATIENT HAS BOWEL MOVEMENTS WITH CLOTS OF BLOOD. COMPLETE BED CHANGED DONE. WILL PAGED HOSPITALIST.
--- NOTE | 2019-01-25 00:22 | NUR ---
HOSPITALIST CALLED BACK AND INFORMED THAT PATIENT IS HAVING CLOTS OF BLOOD IN STOOL. PATIENT'S HGB AT 1330 01/24/19 IS 13.0 NO NEW ORDERS RECEIVED. PATIENT IS SCHEDULED TO HAVE CMP LAB AT 0500. PATIENT'S VITALS ARE WITHIN NORMAL LIMITS.
[2019-01-25] MEDS: PIPERACILLIN-TAZOB 3.375GM 100 ML IV SCH ×2 (00:31→05:35)
[2019-01-25] MEDS: FREE WATER GT SCH ×6 (03:28→23:03)
[2019-01-25] MEDS: DOXYCYCLINE 100MG/250ML 250 ML IV SCH ×2 (03:28→15:15)
--- NOTE | 2019-01-25 04:33 | NUR ---
PATIENT IS RESTING IN BED IN A FOWLERS POSITION, ON JEVITY AT 30ML/HOUR. A SMEAR OF BOWEL MOVEMENT WITH BLOOD CLOTS NOTED AGAIN. PATIENT CONTINUES ON ANTIBIOTIC, FREE WATER THRU NGT 3OOML EVERY 4 HOURS, ON 2LNC SATURATING AT 94% AND NO DISTRESS NOTED. VITALS ARE BLOOD PRESSURE 114/49, PULSE IS 76, RESPIRATIONS 18, TEMPERATURE 98.5.
[2019-01-25 05:00] VITALS: BP 113/49
[2019-01-25] MEDS: PHENYTOIN SODIUM 50 MG/ML 2ML VIAL IV SCH ×3 (05:36→23:02)
[2019-01-25] MEDS: InsuLIN REG 1unit/0.01ml Soln (100units/ml) SC SCH ×4 (06:08→23:04)
[2019-01-25] MEDS: ACCU-CHEK COMFORT CURVE STRIP VI SCH ×4 (06:08→23:04)
--- NOTE | 2019-01-25 07:00 | NUR ---
CRITICAL LAB RECEIVED POTASSIUM 5.6. PAGED HOSPITALIST. AWAITING REPLY.
--- NOTE | 2019-01-25 07:00 | NUR ---
Opening Shift Note Assumed care of patient. Patient has an altered level of consciousness, is drowsy, and is lying supine in bed. Patient exhibiting no S/S of distress/SOB or pain. IV in right upper chest 22 gauge asymptomatic, intact, patent, and currently infusing antibiotic Piperacillin at 33.33 mL/hour. NG tube patent, and infusing Jevity 1.2 at 30 mL/hour. Fraga catheter patent and draining dark elsa urine to gravity. Bed locked and in lowest position and call light is within reach. Instructed on POC and to call for assist PRN, patient did not verbalized understanding, and reinforcement needed. Will continue to monitor for changes Q1hr and PRN.
[2019-01-25 07:03] LABS: BUN/Creatinine Ratio 20.4; Calcium 7.8 mg/dL (8.5-10.1)
[2019-01-25 07:04] LABS: Basophils # (auto) 0.1 uL; Basophils % (auto) 0.3 % (0.0-2.0); Eosinophils # (auto) 0.2 uL; Eosinophils % (auto) 0.9 % (0.0-7.0); Hematocrit 30.3 % (41.0-53.0); Hemoglobin 9.9 g/dL (13.5-17.5); Lymphocytes # (auto) 2.1 uL; Lymphocytes % (auto) 9.6 % (10.0-50.0); Mean Corpuscular Hemoglobin 31.1 pg (28.0-32.0); Mean Corpuscular Hgb Conc. 32.7 g/dL (32.0-36.0); Mean Corpuscular Volume 95.3 fL (80.0-100.0); Monocytes # (auto) 3.5 uL; Monocytes % (auto) 16.1 % (0.0-12.0); Neutrophils # (auto) 15.9 uL; Neutrophils % (auto) 73.1 % (37.0-80.0); Nucleated Red Blood Cells % 0.1 %; Platelet Count (auto) 108 10^3/uL (140-450); Red Blood Cells 3.18 10^6/uL (4.5-5.90); Red Cell Distribution Width 15.6 % (11.8-14.3); White Blood Cell 21.7 10^3/uL (4.4-10.8)
[2019-01-25 07:20] LABS: Potassium 5.6 mmol/L (3.5-5.1)
--- NOTE | 2019-01-25 07:30 | NUR ---
HOSPITALIST RETURNED PAGE Dr. Cid returned page about critical lab value potassium 5.6. New orders received. Will continue to monitor patient Q1.
[2019-01-25] MEDS ORDERED: CALCIUM GLUC 4.65meq/50ml D5AE 50 ML IV ONE (07:45)
[2019-01-25] MEDS ORDERED: InsuLIN REG 1unit/0.01ml Soln (100units/ml) IV ONE (07:45)
[2019-01-25] MEDS ORDERED: DEXTROSE (50%) 50ML SYRG IV ONE (07:45)
[2019-01-25] MEDS ORDERED: SODIUM POLYSTYRENE SULF 15GM/60ml SUSP or POWDER PO ONE (07:45)
[2019-01-25 09:00] VITALS: BP 110/56
--- NOTE | 2019-01-25 09:00 | NUR ---
PATIENT HAS FEVER OF 102.4. GAVE TYLENOL AND INITIATED COOLING MEASURES. WILL CONTINUE TO MONITOR TEMPERATURE.
[2019-01-25] MEDS: ASPirin-EC 81 mg tab PO SCH (10:00)
[2019-01-25] MEDS: ACETAMINOPHEN 500 MG TAB PO PRN ×2 (10:00→17:00)
[2019-01-25] MEDS: PANTOPRAZOLE 40 MG/10 ML VIAL IV SCH (10:00)
--- NOTE | 2019-01-25 10:00 | NUR ---
WOUND CARE NOTE: IN TO SEE PATIENT AT THIS TIME FOR WOUND REEVALUATION. PATIENT HAS CURRENT PATRICIA SCORE OF 13. ORDERED SPECIALTY AIR BED AT THIS TIME. HE CONTINUES TO HAVE A STAGE 2 PRESSURE ULCER TO THE RIGHT HIP. WOUND BED IS PINK AND RED. LIGHT SEROUS DRAINAGE NOTED. WOUND APPEARS TO BE HEALING WELL. PERIWOUND SKIN IS DARK RED. WOUND PHOTO TAKEN FOR REFERENCE. APPLIED ZGUARD AND OPTIFOAM GENTLE DRESSING PER MD ORDER. PATIENT HAS BLANCHABLE BONY PROMINENCES TO ALL OTHER AREAS, INCLUDING SACRUM AND BILATERAL HEELS. OPTIFOAM GENTLE SACRAL DRESSING APPLIED FOR PREVENTATIVE. RECOMMEND: ADD SPECIALTY AIR BED, CONTINUATION WITH ALL OTHER WOUND CARE ORDERS PREVIOUSLY PRESCRIBED BY MD. WOUND CARE TEAM WILL CONTINUE TO MONITOR. Addendum: 01/25/19 at 1717 by Cherie Ruano RN Amended: Links added.
--- NOTE | 2019-01-25 10:05 | NUR ---
PATIENT TEMPERATURE DOWN TO 100.2 UPON RE-ASSESSMENT. WILL CONTINUE TO MONITOR AND INITIATE COOLING MEASURES.
--- NOTE | 2019-01-25 10:06 | NUR ---
EMERGING SOLUTIONS EXECUTIVE, AT BEDSIDE.
[2019-01-25] MEDS ORDERED: D5W 5% 500 ML IV ONE (10:15)
[2019-01-25] MEDS: D5W 5% 1,000 ML IV SCH ×2 (10:30→23:53)
--- NOTE | 2019-01-25 10:30 | NUR ---
PATIENT HAD SMALL BOWEL MOVEMENT THAT WAS DARK BROWN AND DARK RED IN COLOR. INFORMED HOSPITALIST DR. YORK. NEW ORDERS RECEIVED TO OBTAIN STOOL SAMPLE FOR OCCULT BLOOD. WILL CONTINUE TO MONITOR PATIENT.
--- NOTE | 2019-01-25 10:45 | NUR ---
DR. YORK AT BEDSIDE. NEW ORDERS RECEIVED.
[2019-01-25] MEDS: PIPERACILLIN-TAZOB 2.25GM 50 ML IV SCH ×3 (12:00→23:52)
--- NOTE | 2019-01-25 12:00 | NUR ---
CANDICE, "CAREGIVER", AT BEDSIDE. SHE WAS CONCERNED TO WHY PATIENT WAS RECEIVING ANTIBIOTICS. PAGED DR. YORK, HOSPITALIST TO COME AND TALK TO CAREGIVER AND INFORM HER OF PATIENT'S STATUS. WILL CONTINUE TO MONITOR PATIENT.
[2019-01-25 12:06] LABS: Albumin 1.6 g/dL (3.4-5.0); Calcium 8.2 mg/dL (8.5-10.1); Potassium 5.1 mmol/L (3.5-5.1)
[2019-01-25 12:08] LABS: Bilirubin, Total 0.4 mg/dL (0.2-1.0); Total Protein 5.5 g/dL (6.4-8.2)
--- NOTE | 2019-01-25 12:50 | NUR ---
PATIENT HAD SMALL BOWEL MOVEMENT DARK BROWN IN COLOR.
[2019-01-25 13:24] VITALS: BP 92/49
--- NOTE | 2019-01-25 13:30 | NUR ---
DR. YORK AT BEDSIDE CONSULTING WITH "VALIDATION ARCHITECT" CANDICE.
--- NOTE | 2019-01-25 13:45 | NUR ---
BARREL FILLER HEAD CANDICE STATING SHE WANTS A DOCTOR'S SECOND OPINION IN REGARDS TO PATIENT STATUS, AND CURRENT MEDICAL SITUATION, SHE IS REQUESTING PATIENT TO BE TRANSFERRED TO A DIFFERENT HOSPITAL. CALLED TACK CUTTER WORKER, MODESTO, AND SPOKE WITH HER ABOUT KYLER'S CONCERNS AND WISHES TO TRANSFER PATIENT TO DIFFERENT HOSPITAL. MODESTO STATED THAT ONE OF THE SOCIAL SERVICE WORKERS WOULD BE IN TO SPEAK WITH BARREL FILLER HEAD CANDICE WITHIN THE HOUR, AND WOULD ADDRESS HER CONCERNS. WILL CONTINUE TO MONITOR PATIENT.
--- NOTE | 2019-01-25 14:00 | NUR ---
RECEIVED CALL FROM DR. SOLIS, FIELD OPERATIONS TECHNICIAN, REGARDING PATIENT STATUS. NO NEW ORDERS RECEIVED OF 1399. WILL CONTINUE TO MONITOR PATIENT.
[2019-01-25] MEDS: MULTIPLE VITAMINS W/ MINERALS TAB PO SCH (14:27)
--- NOTE | 2019-01-25 16:00 | NUR ---
RECEIVED CALL FROM MODESTO IN [employer]FF[employer] OFFICER, SHE SPOKE WITH PATIENT CAREGIVER CANDICE, AND CAREGIVER STATED SHE IS IN ACCEPTANCE FOR THE PATIENT TO REMAIN HERE AT [facility] UNTIL MONDAY. WILL CONTINUE TO MONITOR PATIENT.
--- NOTE | 2019-01-25 16:00 | NUR ---
PATIENT HAD SMALL DARK BROWN AND DARK RED BOWEL MOVEMENT. CLEANED PATIENT THOROUGHLY AND PLACED OPTIFOAM ON SACRUM, TO HELP PREVENT SKIN BREAKDOWN. WILL CONTINUE TO MONITOR PATIENT.
--- NOTE | 2019-01-25 16:09 | NUR ---
I spoke with patient's caregiver Waleska for at least 20 minutes, answered all her questions, she is okay waiting until Monday to see what happens with patient's bloodwork-no need for transfer at this time. I called Dr. Aguila to let her know-she will d/c the transfer order. I also spoke with patient's nurse Frances to let her know.
--- NOTE | 2019-01-25 16:45 | NUR ---
PATIENT TEMPERATURE IS 102.0. ADMINISTERED TYLENOL AND COOLING MEASURES. WILL CONTINUE TO MONITOR PATIENT AND TEMPERATURE.
--- NOTE | 2019-01-25 17:00 | NUR ---
Midline Placement: Patient educated on need for midline placement. All risks and benefits explained and all questions and concerns addresses prior to procedure. 18g/10cm midline inserted via left brachial vein using Ultrasound. Sterile technique utilized. Blood return obtained from the lumen and flushed easily with NS using proper technique. Midline secured with saline lock; biodisc and occlusive dressing applied. Primary RN notified. Midline lot # [id number].
--- NOTE | 2019-01-25 17:11 | NUR ---
assessment Patient is a 73 year old male who is confused. Prior to admission patient lived home with his caregiver Waleska and ERICK. Per Waleska patients PCP is Dr Villalba. Per Waleska patient has a fww and a wheelchair for home use. Patient is on service with [facility]. Patient may benefit from a resumption order on discharge. Waleska is patients [facility] care provider. Patient will return home with Waleska on discharge. Waleska verbalized understanding and agreed to discharge plan home. Addendum: 01/25/19 at 1714 by Melisa LICONA Amended: Links added.
[2019-01-25 17:29] VITALS: BP 108/48
[2019-01-25] MEDS: LACTULOSE 20Gm/30ML SOLN NG SCH (18:00)
[2019-01-25] MEDS: TAMSULOSIN HYDROCHLORIDE 0.4 MG CAP PO SCH (18:00)
--- NOTE | 2019-01-25 18:00 | NUR ---
PATIENT TEMPERATURE DOWN TO 100.0. WILL CONTINUE TO MONITOR PATIENT.
--- NOTE | 2019-01-25 19:00 | NUR ---
IV REMOVAL Peripheral IV DC'd from upper right chest with sterile technique, catheter fully intact. Pressure dressing applied to site. Patient tolerated procedure well. Will continue to monitor.
--- NOTE | 2019-01-25 19:05 | NUR ---
ENDORSED CARE TO BUNDLING MACHINE OPERATOR RN
[2019-01-25 20:00] VITALS: BP 86/46
--- NOTE | 2019-01-25 20:56 | NUR ---
Patient has Fraga Catherter intact. No urinary output. No bladder distention. Bladder checked with bladder Scan. Resultls indicated 11 ML.
[2019-01-25 21:00] VITALS: BP 86/46
--- NOTE | 2019-01-25 21:30 | NUR ---
Caregiver, Lana, called to inquire about patient's most recent temperature. Information provided upon her request. Temperature at that time was 99.0. Cooling measures implemented.
--- NOTE | 2019-01-25 22:55 | NUR ---
Patient continues to have no urinary output. Frequent large loose brown foul odor stool expelled. Janneth Rolon NP, notified of findings. Orders obtained for Nephrology consult; check pending stool occult. If stool ocult results are positive, order GI consult. Breath sounds with Rhonchi to left.
[2019-01-25] MEDS: ATORVASTATIN 20 MG TAB PO SCH (23:02)
[2019-01-25] MEDS: ASCORBIC ACID 500 MG TAB PO SCH (23:03)
[2019-01-26] MEDS: FREE WATER GT SCH ×3 (02:00→09:40)
[2019-01-26] MEDS: DOXYCYCLINE 100MG/250ML 250 ML IV SCH (04:38)
[2019-01-26 05:00] VITALS: BP 126/67
--- NOTE | 2019-01-26 05:24 | NUR ---
critical lab called pt is positive for gram positive cocci in clusters. paged hospitalist. awaiting call back.
--- NOTE | 2019-01-26 05:40 | NUR ---
Blood Culture results given to Janneth Rolon NP,. Patient's current antibiotic regimen provided. No new orders given at this time.
[2019-01-26] MEDS: InsuLIN REG 1unit/0.01ml Soln (100units/ml) SC SCH ×2 (06:00→06:41)
[2019-01-26] MEDS: LACTULOSE 20Gm/30ML SOLN NG SCH ×2 (06:00)
[2019-01-26] MEDS: D5W 5% 1,000 ML IV SCH (06:15)
[2019-01-26] MEDS: PHENYTOIN SODIUM 50 MG/ML 2ML VIAL IV SCH (06:33)
[2019-01-26 07:10] LABS: Mean Corpuscular Hemoglobin 31.1 pg (28.0-32.0); Mean Corpuscular Hgb Conc. 32.1 g/dL (32.0-36.0); Mean Corpuscular Volume 96.8 fL (80.0-100.0); Platelet Count (auto) 143 10^3/uL (140-450); Red Blood Cells 2.89 10^6/uL (4.5-5.90); Red Cell Distribution Width 15.9 % (11.8-14.3)
[2019-01-26] MEDS: PIPERACILLIN-TAZOB 2.25GM 50 ML IV SCH (07:12)
[2019-01-26 07:14] LABS: Basophils % (manual) 0 (0.0-2.0); Blast Cells 0; Eosinophils % (manual) 0 (0-7); Metamyelocytes % 0; Myelocytes % 0; Promyelocytes % 0; Reactive Lymphocytes 0
[2019-01-26] MEDS: ACCU-CHEK COMFORT CURVE STRIP VI SCH (07:22)
[2019-01-26 07:27] LABS: BUN/Creatinine Ratio 18.7; Calcium 8.5 mg/dL (8.5-10.1); Potassium 5.3 mmol/L (3.5-5.1)
--- NOTE | 2019-01-26 07:44 | NUR ---
CRITICAL LAB ASSISTANT TENNIS COACH SAM AND HARJINDER LIAO RECEIVED PHONE CALLS FROM CHEMISTRY REGARDING CRITICAL WBC AND BUN. SPOKE TO CHRISTIAN COUNSELOR HOSPITALIST DOCTOR MONTEIRO REGARDING CRITICAL WBC OF 39.3. NO ORDERS RECEIVED AT THIS TIME. CONTACTED CHRISTIAN COUNSELOR ENERGY SYSTEMS LABORATORY DIRECTOR TO INFORM OF BUN/CR/POTASSIUM. SPOKE TO DAMARIS AT EXCHANGE. WAITING CHRISTIAN COUNSELOR BACK.
--- NOTE | 2019-01-26 08:00 | NUR ---
OPENING NOTE OBSERVED PT SITTING UP IN BED, NO OBSERVABLE SIGNS OF PAIN/SOB NOTED. EYE CARE PROVIDED WITH WARM WATER AND WASH SIMON. ATTEMPTED ORAL CARE WITH WARM WATER/ORAL SWABS AND WASH CLOTH. COPIOUS AMOUNTS OF DRIED CRUST NOTED. ODOR OF BM NOTED THOUGH NO BM IS SEEN WHEN PT TURNED IN BED WITH ASSISTANCE OF ASSISTANT BRANCH MANAGER. UPON ASSESSMENT LARGE AMOUNT OF BRIGHT RED BLOOD NOTED COMING FROM RECTUM. PARTIAL BATH AND LINEN CHANGE COMPLETED. PT AROUSEABLE TO LIGHT PAIN, ALERT TO NAME THOUGH SPEECH IS UNCLEAR. PT IS HYPOTENSIVE BP CURRENTLY 72/43. D5 INFUSING PER MD ORDER AT 100ML/HR. HR 65. BLE ELEVATED ON PILLOW. CALL LIGHT WITHIN REACH. FALL PRECAUTIONS AND SEIZURE PRECAUTIONS IN PLACE. WILL CONTINUE TO MONITOR CLOSELY. Addendum: 01/26/19 at 1154 by Karis Long RN RN BRIGHT RED BLOOD WITH MODERATE AMOUNT OF CLOTS.
--- NOTE | 2019-01-26 08:05 | NUR ---
SPOKE TO MD SPOKE TO FLAT GRINDER OPERATOR HOSPITALIST DOCTOR READY AGAIN REGARDING PATIENT STATUS. INFORMED DR. MONTEIRO OF ACTIVE BLEEDING FROM RECTUM AND HYPOTENSION. INFORMED MD THAT I BELIEVE PT SHOULD BE TRANSFERRED TO [facility] OR ICU. MD REQUESTING TO WAIT TO SEE WHO ATTENDING PHYSICIAN FOR THE DAY WILL BE. SPOKE TO RF TECHNICIAN, YAIMA TO INFORM. YAIMA AT BEDSIDE FOR ASSESSMENT. YAIMA CONTACTED BROADCAST TECHNICIAN FOR POSSIBLE NEED TO TRANSFER TO HIGHER LEVEL [facility]/ICU.
--- NOTE | 2019-01-26 08:25 | NUR ---
GI CONSULT SPOKE TO GREEN BELT REGARDING GI CONSULT TO BE CALLED INTO PBX.
[2019-01-26 09:00] VITALS: BP 72/43
--- NOTE | 2019-01-26 09:14 | NUR ---
DIGITAL ANALYTICS MANAGER AND COMMERCIAL AGENT AT BEDSIDE DIGITAL ANALYTICS MANAGER ERWIN AND COMMERCIAL AGENT, YAIMA AT BEDSIDE. DIGITAL ANALYTICS MANAGER UPDATED ON PT STATUS AND MOST RECENT VITAL SIGNS.
[2019-01-26 09:15] VITALS: BP 70/39
--- NOTE | 2019-01-26 09:15 | NUR ---
SPOKE TO MD DR. CASTILLO SEEN ON UNIT MAKING DAILY ASSIGNMENT. SPOKE TO MD REGARDING PT STATUS. ORDERS RECEIVED FOR STAT CBC AND 500 CC BOLUS. TRANSFER ORDERS ALSO RECEIVED. ORDERS READ BACK. ELECTRON BEAM MACHINE WELDER SETTER YAIMA AND DATA ENTRY EMAIL PROCESSOR ERWIN MADE AWARE OF TRANSFER ORDER.
--- NOTE | 2019-01-26 09:16 | NUR ---
LAB CALLED LAB REGARDING STAT CBC AND TYPE AND SCREEN. AWARE OF ORDERS.
--- NOTE | 2019-01-26 09:16 | NUR ---
GI CONSULT PAGED DR. CONTRERAS THROUGH PBX. WAITING ON RESPONSE.
--- NOTE | 2019-01-26 09:29 | NUR ---
RETURNED PAGE DR. CONTRERAS RETURNED PAGE AND UPDATED ON PT STATUS. REQUESTING JEVITY AND ASPIRIN BE DISCONTINUED AT THIS TIME. ORDERS READ BACK. STATING HE WILL BE SEEING THE PATIENT LATER TODAY. Addendum: 01/26/19 at 0940 by Karis Long RN RN STATING OK TO ADMINISTER REMAINING MEDICATIONS THROUGH NGT.
[2019-01-26 09:30] VITALS: BP 74/40
[2019-01-26] MEDS ORDERED: SODIUM CHLORIDE 0.9% 500 ML IV ONE (09:30)
[2019-01-26] MEDS: PANTOPRAZOLE 40 MG/10 ML VIAL IV SCH (09:40)
[2019-01-26] MEDS: MULTIPLE VITAMINS W/ MINERALS TAB PO SCH (09:40)
[2019-01-26] MEDS: ASCORBIC ACID 500 MG TAB PO SCH (09:41)
[2019-01-26 09:52] LABS: Band Neutrophils % (manual) 2; Lymphocytes % (manual) 9 (10.0-50.0); Monocytes % (manual) 4 (0-12)
[2019-01-26 10:26] VITALS: BP 78/47
--- NOTE | 2019-01-26 10:26 | NUR ---
BP REASSESSED BP REASSESSED FOLLOWING BOLUS COMPLETION. WILL INFORM ATTENDING MD.
--- NOTE | 2019-01-26 10:32 | NUR ---
CAREGIVER UPDATED RECEIVED PHONE CALL FROM PATIENTS CAREGIVER, ANTONIO. AFTER PASSWORD OBTAINED, UPDATED ON POC. AWARE OF PENDING TRANSFER TO [facility]. ANTONIO EXPRESSING FRUSTRATION WITH COURSE OF HOSPITALIZATION, STATING PATIENT SHOULD HAVE BEEN TRANSFERRED TO ICU 'DAYS AGO'. REINFORCED CURRENT POC WITH ANTONIO. VERBALIZED UNDERSTANDING WITH POC.
--- NOTE | 2019-01-26 10:34 | NUR ---
TERI MAGANA CALLED DR. CASTILLO UPDATED WITH REASSESSMENT OF B/P FOLLOWING FLUID BOLUS, PT STATUS, AND PENDING LABS. TO SEE PATIENT. PRIMARY RN AND DR. CASTILLO WENT IN TO SEE PATIENT, PT PREVIOUSLY RESPONSIVE TO PAINFUL STIMULI. PT NOW NON-RESPONSIVE AFTER STERNAL RUB. NO CAROTID PULSE NOTED UPON CHECK. TERI MAGANA CALLED. SEE TERI MAGANA LOG. Addendum: 01/26/19 at 1057 by Karis Long RN RN TERI MAGANA CALLED, CPR STARTED BY PRIMARY RN.
--- NOTE | 2019-01-26 10:38 | NUR ---
FAMILY CALLED ANTONIO CALLED BY SLITTER CREASER SLOTTER OPERATOR DAQUAN TO INFORM OF CHANGE OF STATUS. ON HER WAY TO THE FACILITY.
[2019-01-26 10:49] LABS: Hematocrit 32.7 % (41.0-53.0); Hemoglobin 9.4 g/dL (13.5-17.5); Mean Corpuscular Hemoglobin 30.7 pg (28.0-32.0); Mean Corpuscular Hgb Conc. 28.9 g/dL (32.0-36.0); Mean Corpuscular Volume 106.2 fL (80.0-100.0); Platelet Count (auto) 138 10^3/uL (140-450); Red Blood Cells 3.08 10^6/uL (4.5-5.90); Red Cell Distribution Width 17.1 % (11.8-14.3)
--- NOTE | 2019-01-26 10:57 | NUR ---
CRITICAL LAB RECEIVED PHONE CALL FROM LAB RE: CRITICAL WBC. PT . CHEMISTRY INFORMED.
[2019-01-26 11:01] LABS: White Blood Cell 41.2 10^3/uL (4.4-10.8)
--- NOTE | 2019-01-26 11:01 | NUR ---
[facility] CONTACTED [facility] TO REPORT . SPOKE TO MARY. REFERENCE ID: [id number].
[2019-01-26 11:03] LABS: Basophils % (manual) 0 (0.0-2.0); Blast Cells 0; Eosinophils % (manual) 0 (0-7); Metamyelocytes % 0; Myelocytes % 0; Promyelocytes % 0; Reactive Lymphocytes 0
--- NOTE | 2019-01-26 11:08 | NUR ---
[facility] CONTACTED [facility] TO INFORM OF . SPOKE TO BETZAIDA. STATING SHE WILL REPORT AND PRIMARY RN WILL RECEIVE CONTACT AT LATER TIME.
--- NOTE | 2019-01-26 11:21 | NUR ---
CAREGIVER RECEIVED PHONE CALL FROM PATIENTS CAREGIVER, ANTONIO. AFTER PASSWORD OBTAINED, UPDATED ON PT EXPIRATION. ANTONIO VERBALIZED UNDERSTANDING. ANTONIO INQUIRING TO WHETHER OR NOT SHE SHOULD CONTACT MORTUARY. INFORMED THAT WE HAVE LIST OF MORTUARIES IF SHE WOULD LIKE. ANTONIO STATING SHE ALREADY HAS MORTUARY PICKED OUT. ANTONIO STATING SHE WILL BE IN TO SEE PATIENT MOMENTARILY.
--- NOTE | 2019-01-26 12:05 | NUR ---
CAREGIVER AT BEDSIDE PATIENTS CAREGIVER ANTONIO ON UNIT TO SEE PATIENT. INFORMED ANTONIO THAT THOUGH PATIENT HAS BEEN CLEANED UP AND REPOSITIONED, ALL LINES STILL REMAIN IN PLACE PRIMARY RN HAS NOT YET RECEIVED PHONE CALL BACK FROM [facility] OR [facility] OFFICE. ANTONIO VERBALIZED UNDERSTANDING. ANTONIO AT BEDSIDE. PATIENTS PERSONAL BELONGINGS PREVIOUSLY COLLECTED AND GIVEN TO ANTONIO AT BEDSIDE. ANTONIO WAITING FOR ADDITIONAL FAMILY TO ARRIVE TO FACILITY. ANTONIO STATING SHE HAS INFORMED [facility] OF PATIENTS PASSING. INFORMED HER THAT [facility]ASH[facility] OFFICE/[facility] HAS NOT CLEARED PATIENT YET FOR TRANSFER OUT. VERBALIZED UNDERSTANDING.
--- NOTE | 2019-01-26 12:39 | NUR ---
[facility] RECEIVED PHONE CALL FROM LIZANDRO AT [facility]. UPDATED WITH PT STATUS/HX. PER LIZANDRO, [facility] WILL NOT PURSUE TISSUE DONATION. REF# [id number].
[2019-01-26] MEDS ORDERED: SODIUM BICARBONATE 8.4% INJ 50ML SYRINGE IV ONE (12:48)
[2019-01-26] MEDS ORDERED: EPINEPHrine HCL 1 MG/10 ML SYRG IV ONE (12:48)
[2019-01-26 13:28] LABS: Band Neutrophils % (manual) 8; Lymphocytes % (manual) 4 (10.0-50.0); Monocytes % (manual) 4 (0-12)
--- NOTE | 2019-01-26 13:45 | NUR ---
JANITORIAL ACCOUNT MANAGER CALLED [facility] [employer]QUIP[employer] DEPT INQUIRING TO WHAT STATUS OF JANITORIAL ACCOUNT MANAGER RESPONSE WAS. DISPATCH STATING THEY WILL SPEAK TO JANITORIAL ACCOUNT MANAGER REGARDING STATUS. WAITING DEVELOPMENT ENG BACK.
[2019-01-26] MEDS ORDERED: PIPERACILLIN-TAZOB 2.25GM 50 ML IV SCH (14:00)
--- NOTE | 2019-01-26 15:14 | NUR ---
JOURNEYMAN LINEMAN CALLED [facility] REPRESENTATIVE DEPARTMENT AGAIN INQUIRING TO WHAT STATUS WAS OF JOURNEYMAN LINEMAN CALL BACK. SPOKE TO RUBI. RUBI STATING PT STILL ON HOLD, AND 1 PATIENT AHEAD. WAITING BLOWN FILM EXTRUSION OPERATOR BACK.
--- NOTE | 2019-01-26 15:50 | NUR ---
MANAGER ICU RECEIVED PHONE CALL FROM DEPUTY DELBERT ALVAREZ. REPORT GIVEN TO DEPUTNeel ALVAREZ. DEPUTY STATING BODY OK TO BE RELEASED. ID# [id number].
--- NOTE | 2019-01-26 16:38 | NUR ---
POST-MORTEM CARE [facility] CARE PROVIDED. WOUND PHOTOGRAPH TAKEN OF RIGHT HIP ULCER. FORM PLACED IN WOUND CARE BOX. CONTACTED SECURITY. A[place] [facility] [place]
--- NOTE | 2019-01-26 17:19 | NUR ---
POLLO PT TRANSPORTED TO [facility] [place] BY PRIMARY RN AND SECURITY STAFF, DILIA. [facility] [place] LOG SIGNED.
[2019-01-27 07:44] LABS: White Blood Cell 39.3 10^3/uL (4.4-10.8)
--- NOTE | 2019-01-28 16:23 | NUR ---
ATTEMPT MADE TO RETURN CALL TO [facility] FOR MORTUARY ARRANGEMENTS AT [phone]. VOICEMAIL IS FULL AND COULD NOT LEAVE MESSAGE.
--- NOTE | 2019-01-29 14:03 | NUR ---
AFTER NUMEROUS CALLS, I WAS FINALLY ABLE TO DETERMINE THAT FACILITY CHOSEN WAS [facility] ([phone]). I SPOKE FIRST WITH CANDICE, LEWIS, WHO IS IN CONTACT WITH TIFFANI, [facility]. I THEN SPOKE TO KYLE AT THE MORTUARY.. HE WAS TOLD TO FAX ME A RELEASE FROM [facility]SIN THEN HE COULD COME AND FLIGHT INSPECTOR DECEDENT.
== END 2019-01-26 10:47 | disposition expired | DRG 190 ==
LOC: EDBD 11:35 → ER 11:35 → TELE 15:17 → TELE-CENTR 17:37
PROVIDERS: ADMIT Internal Medicine; ATTEND Internal Medicine
PROC: 5A12012 Performance of Cardiac Output, Single, Manual (ICD-10-PCS; principal; 2019-01-26)
DX: I21.4 Non-ST elevation (NSTEMI) myocardial infarction (principal); J96.00 Acute respiratory failure, unspecified whether with hypoxia or hypercapnia; N17.0 Acute kidney failure with tubular necrosis; E44.0 Moderate protein-calorie malnutrition; A41.9 Sepsis, unspecified organism; G93.41 Metabolic encephalopathy; D69.6 Thrombocytopenia, unspecified; Z66 Do not resuscitate; E87.1 Hypo-osmolality and hyponatremia; E86.0 Dehydration; E87.0 Hyperosmolality and hypernatremia; F20.9 Schizophrenia, unspecified; I50.9 Heart failure, unspecified; I11.0 Hypertensive heart disease with heart failure; Z86.73 Personal history of transient ischemic attack (TIA), and cerebral infarction without residual deficits; I25.10 Atherosclerotic heart disease of native coronary artery without angina pectoris; K92.1 Melena; E78.5 Hyperlipidemia, unspecified; E16.2 Hypoglycemia, unspecified; M19.90 Unspecified osteoarthritis, unspecified site; G11.9 Hereditary ataxia, unspecified; F01.50 Vascular dementia, unspecified severity, without behavioral disturbance, psychotic disturbance, mood disturbance, and anxiety; G40.909 Epilepsy, unspecified, not intractable, without status epilepticus; Z68.24 Body mass index [BMI] 24.0-24.9, adult; G20 Parkinson's disease; I25.2 Old myocardial infarction; I42.9 Cardiomyopathy, unspecified; I67.2 Cerebral atherosclerosis; I70.0 Atherosclerosis of aorta; K59.00 Constipation, unspecified; Z79.02 Long term (current) use of antithrombotics/antiplatelets; Z51.5 Encounter for palliative care; Z79.899 Other long term (current) drug therapy; Z82.49 Family history of ischemic heart disease and other diseases of the circulatory system; Z87.442 Personal history of urinary calculi; Z95.0 Presence of cardiac pacemaker
CPT/HCPCS: 36415; 51702; 70450; 71045; 74176; 76775; 80048; 80053; 81001; 82270; 82306; 82550; 82570; 82607; 82746; 82962; 83036; 83605; 83735; 83935; 84100; 84156; 84295; 84300; 84443; 84484; 85007; 85025; 85027; 85610; 85652; 85730; 86141; 87040; 87077; 87081; 87086; 87088; 87186; 93005; 93306; 93886; 94761; 95819; A6257; C9113; G0378; J0610; J1815; J2543; J3490; J7042